=== PATIENT | male | born 2000 | race Caucasian/White ===

== ENCOUNTER 2021-02-04 20:49 | Emergency (ER) | payer OTHER, SELFPAY ==
[2021-02-05 17:08] LABS: SARS-CoV-2 PCR by NAA DETECTED (NotDetected)
== END 2021-02-04 21:48 | disposition home or self-care (01) ==
LOC: MADERS 20:49
DX: U07.1 COVID-19 (principal)
CPT/HCPCS: 99284; U0003; U0005

== ENCOUNTER 2021-02-17 17:01 | Emergency (ER) | payer OTHER, SELFPAY ==
[2021-02-18 16:15] LABS: SARS-CoV-2 PCR by NAA DETECTED (NotDetected)
== END 2021-02-17 18:08 | disposition home or self-care (01) ==
LOC: MADERS 17:01
DX: U07.1 COVID-19 (principal)
CPT/HCPCS: 99283; U0003; U0005

== ENCOUNTER 2021-07-04 14:01 | Emergency (ER) | payer SELFPAY ==
[2021-07-04] MEDS ORDERED: predniSONE 20 MG TAB ONE (14:38)
== END 2021-07-04 14:45 | disposition home or self-care (01) ==
LOC: MADERS 14:01
DX: L23.7 Allergic contact dermatitis due to plants, except food (principal)
CPT/HCPCS: 99282; J7512

== ENCOUNTER 2021-07-08 23:33 | Emergency (ER) | payer SELFPAY ==
[2021-07-09 00:38] LABS: #Basophils 0.1 thou/uL (0.0-0.2); #Lymphocytes 0.6 thou/uL (1.20-3.40); #Monocytes 0.5 thou/uL (0.11-0.59); %Basophils 0.6 % (0.0-1.0); %Eosinophils 0.5 % (0.0-10.0); %Lymphocytes 6.7 % (21.0-51.0); %Monocytes 5.4 % (0.0-10.0); %Neutrophils 86.8 % (42.0-75.0); Mean Corpuscular HGB CONC 32.8 g/dL (32.0-36.0); Mean Corpuscular Hemoglobin 28.4 pg (27.0-31.0); Mean Corpuscular Volume 86.7 fL (78.0-98.0); Mean Platelet Volume 6.7 fL (7.4-10.4); Platelet Count 217 thou/uL (130-400); RBC Distribution Width 12.3 % (11.5-14.5); Red Blood Cell (RBC) Count 4.93 mill/uL (4.70-6.10); White Blood Cell (WBC) Count 9.2 thou/uL (4.8-10.8)
[2021-07-09] MEDS ORDERED: Acetaminophen 500 MG TAB ONE (00:41)
[2021-07-09 01:05] LABS: Amphetamine Not Detected (NotDetected); Barbiturates Screen Not Detected (NotDetected); Benzodiazepine Screen Not Detected (NotDetected); Cocaine Metabolite Screen Not Detected (NotDetected); Medtox Control Line Valid? VALID (VALID); Methadone Not Detected (NotDetected); Methamphetamine Not Detected (NotDetected); Opiate Screen Not Detected (NotDetected); Oxycodone Screen Not Detected (NotDetected); Phencyclidine (PCP) Not Detected (NotDetected); THC/Cannabinoid Screen Not Detected (NotDetected); Tricyclic Screen Not Detected (NotDetected)
[2021-07-09 01:13] LABS: Bilirubin Negative (Negative); Blood, Urine Negative (Negative); Clarity Clear (Clear); Glucose, Urine (Dipstick) Negative (Negative); Ketone, Urine Negative (Negative); Leukocyte Negative (Negative); Nitrite Negative (Negative); Protein, Urine (Dipstick) Negative (Neg-Trace); Urobilinogen 0.2 mg/dL (Less than 2)
[2021-07-09 01:14] LABS: Specific Gravity, Urine 1.026 (1.002-1.036)
[2021-07-09 01:32] LABS: ALT (SGPT) 45 U/L (8-55); AST (SGOT) 24 U/L (5-34); Albumin 4.3 g/dL (3.5-5.0); Alkaline Phosphatase 66 U/L (40-110); Anion Gap 12 mmol/L (10-20); BUN (Urea Nitrogen) 13 mg/dL (8.9-20.6); Bilirubin, Total 0.8 mg/dL (0.2-1.2); Calc. Creatinine Clearance 0 mL/min (70-130); Calcium 9.1 mg/dL (7.8-10.44); Carbon Dioxide 26 mmol/L (22-29); Chloride 102 mmol/L (98-107); Globulin 2.6 g/dL (2.4-3.5); Glucose 216 mg/dL (70-105); Potassium 3.4 mmol/L (3.5-5.1); Protein, Total 6.9 g/dL (6.0-8.3); Sodium 137 mmol/L (136-145)
[2021-07-09 01:33] LABS: Acetaminophen Less than 6.0 mcg/mL (10.0-30.0); Alcohol Less than 10 mg/dL (Less than 10); Magnesium 1.3 mg/dL (1.6-2.6); Salicylate Less than 8.0 mg/dL (15.0-30.0)
[2021-07-09] MEDS ORDERED: Magnesium 2 GM/50 ML BAG (IN WATER) ONE (01:49)
[2021-07-09] MEDS ORDERED: Lorazepam 2 MG/ML VIAL ONE (01:49)
[2021-07-09] MEDS ORDERED: Potassium Chloride 20 MEQ TAB ONE (01:49)
[2021-07-09 05:29] LABS: Lactic Acid 1.3 mmol/L (0.5-2.2)
[2021-07-09] MEDS ORDERED: Cefepime 2 GM VIAL ONE (06:43)
[2021-07-09] MEDS ORDERED: Sodium Chloride 0.9% 1,000 ML ONE (06:55)
== END 2021-07-09 07:08 | disposition short-term general hospital (02) ==
LOC: MADERS 23:33
DX: A41.9 Sepsis, unspecified organism (principal); T38.0X5A Adverse effect of glucocorticoids and synthetic analogues, initial encounter; R00.0 Tachycardia, unspecified; E83.42 Hypomagnesemia; E87.6 Hypokalemia; F17.290 Nicotine dependence, other tobacco product, uncomplicated; Z79.52 Long term (current) use of systemic steroids
CPT/HCPCS: 70450; 80053; 80306; 80307; 81003; 83605; 83735; 84443; 85025; 87040; 93005; 96365; 96367; 96375; J0692; J2060; J3370; J3475; J7050

== ENCOUNTER 2022-08-10 10:37 | Emergency (ER) | payer SELFPAY | END 2022-08-10 11:45 | disposition home or self-care (01) | LOC: MADERS 10:37 | DX: L03.114 Cellulitis of left upper limb (principal); L25.9 Unspecified contact dermatitis, unspecified cause; Z87.891 Personal history of nicotine dependence | CPT/HCPCS: 99283 ==

== ENCOUNTER 2022-10-14 09:35 | Emergency (ER) | payer SELFPAY ==
[2022-10-14] MEDS ORDERED: Dexamethasone 10 MG/ML VIAL ONE (10:06)
== END 2022-10-14 11:05 | disposition home or self-care (01) ==
LOC: MADERS 09:35
DX: J03.90 Acute tonsillitis, unspecified (principal); Z20.822 Contact with and (suspected) exposure to COVID-19; F17.290 Nicotine dependence, other tobacco product, uncomplicated
CPT/HCPCS: 87081; 87430; 87804; 96372; 99283; J1100; U0003; U0005

== ENCOUNTER 2023-02-09 18:54 | Emergency (ER) | payer SELFPAY ==
[2023-02-09] MEDS ORDERED: Sodium Chloride 0.9% 1,000 ML ONE (19:59)
[2023-02-09] MEDS ORDERED: Ondansetron PF 4 MG/2 ML Vial ONE ×2 (19:59→22:11)
[2023-02-09 20:32] LABS: #Basophils 0.1 thou/uL (0.0-0.2); #Eosinphils 0.1 thou/uL (0.0-0.7); #Lymphocytes 1.5 thou/uL (1.20-3.40); #Monocytes 0.6 thou/uL (0.11-0.59); #Neutrophils 9.2 thou/uL (1.40-6.50); %Basophils 0.7 % (0.0-1.0); %Eosinophils 1.1 % (0.0-10.0); %Lymphocytes 13.4 % (21.0-51.0); %Monocytes 5.2 % (0.0-10.0); %Neutrophils 79.7 % (42.0-75.0); Hemoglobin 15.8 g/dL (14.0-18.0); Mean Corpuscular HGB CONC 33.5 g/dL (32.0-36.0); Mean Corpuscular Hemoglobin 28.2 pg (27.0-31.0); Mean Corpuscular Volume 84.1 fl (78.0-98.0); Mean Platelet Volume 8.9 fL (7.4-10.4); Platelet Count 298 10x3/uL (130-400); Red Blood Cell (RBC) Count 5.62 mill/uL (4.70-6.10); White Blood Cell (WBC) Count 11.5 10x3/uL (4.8-10.8)
[2023-02-09 20:46] LABS: ALT (SGPT) 71 U/L (8-55); AST (SGOT) 39 U/L (5-34); Albumin 4.6 g/dL (3.5-5.0); Alkaline Phosphatase 77 U/L (40-110); Anion Gap 14 mmol/L (10-20); BUN (Urea Nitrogen) 7 mg/dL (8.9-20.6); Calc. Creatinine Clearance 0 mL/min (70-130); Carbon Dioxide 25 mmol/L (22-29); Chloride 103 mmol/L (98-107); Estimated GFR 124; Globulin 3.4 g/dL (2.4-3.5); Glucose 105 mg/dL (70-105); Lipase 16 U/L (8-78); Magnesium 1.8 mg/dL (1.6-2.6); Potassium 3.9 mmol/L (3.5-5.1); Sodium 138 mmol/L (136-145)
== END 2023-02-09 22:17 | disposition home or self-care (01) ==
LOC: MADERS 18:54
DX: R11.2 Nausea with vomiting, unspecified (principal); R19.7 Diarrhea, unspecified; F17.220 Nicotine dependence, chewing tobacco, uncomplicated
CPT/HCPCS: 80053; 83690; 83735; 85025; 96361; 96374; 96376; J2405; J7050

== ENCOUNTER 2025-03-24 02:06 | Emergency (ER) | payer SELFPAY | END 2025-03-24 02:34 | disposition home or self-care (01) | LOC: MADERS 02:06 | DX: L23.7 Allergic contact dermatitis due to plants, except food (principal); Z87.891 Personal history of nicotine dependence | CPT/HCPCS: 99283 ==